=== PATIENT | female | born 1955 | race Caucasian/White ===

== ENCOUNTER 2019-02-16 11:14 | Outpatient (CLI) | payer OTHER | END 2019-02-16 11:18 | disposition home or self-care (01) | LOC: SONOGRAMA 11:14 | DX: R22.1 Localized swelling, mass and lump, neck (principal); D35.1 Benign neoplasm of parathyroid gland ==

== ENCOUNTER 2022-05-04 08:14 | Outpatient (CLI) | payer OTHER | END 2022-05-04 08:20 | disposition home or self-care (01) | LOC: SONOGRAMA 08:14 | PROVIDERS: ATTEND Pathology Anatomic Pathology & Clinical Pathology | DX: E04.9 Nontoxic goiter, unspecified (principal) ==